=== PATIENT | male | born 1960 | race Asian ===

== ENCOUNTER → 2023-11-07 07:13 | Outpatient (REF) | payer OTHER, SELFPAY | LOC: PAVMRI 07:13 | PROVIDERS: ATTENDING PHYSICIAN Psychiatry & Neurology Neurology; FAMILY PHYSICIAN Nurse Practitioner Family | DX: I65.9 Occlusion and stenosis of unspecified precerebral artery (principal); R56.9 Unspecified convulsions | CPT/HCPCS: 70553; A9575 ==

== ENCOUNTER → 2024-02-16 07:48 | Outpatient (REF) | payer OTHER, SELFPAY ==
--- NOTE | 2024-02-16 11:03 | EEG.RPT ---
Electroencephalogram Report
Recording
Date of EE02/16/24
Type of EEG: Routine
Length of EEG recordin minutes
Done with Video Recording: No
Patient Status: Outpatient
Recording Conditions: Awake, Drowsy and Asleep
Hyperventilation Performed: No
Photic Stimulation Performed: Yes
Report
GREATER THAN 1 HOUR EEG REPORT
EEG INTERPRETATION:
Unremarkable EEG for age
CLINICAL CORRELATION:
A normal EEG does not rule out a diagnosis of epilepsy. If clinical suspicion for seizure persists, a prolonged recording may be warranted.
Clinical correlation is advised.
METHODS:
A 21 channel digitized electroencephalogram (EEG) was performed in the [facility]. The 10/20 international system of electrode placement was used with ECG and lateral/vertical eye movements recorded.
ELECTROENCEPHALOGRAPHER IMPRESSION(S):
Quality of study
Good
Background
Unremarkable, well maintained, medium amplitude alpha-frequency and unremarkable anterior-posterior voltage gradient
With eye opening the background activity changed to a low voltage mixture of frequencies.
Sleep
Drowsiness present
Hyperventilation
Did not activate the record
Photic Stimulation
Did not activate the record
ECG
Normal sinus rhythm
== END ==
LOC: EEG 07:48
PROVIDERS: ATTENDING PHYSICIAN Psychiatry & Neurology Neurology; FAMILY PHYSICIAN Nurse Practitioner Family
DX: R56.9 Unspecified convulsions (principal)
CPT/HCPCS: 95813

== ENCOUNTER 2025-05-17 11:35 | Emergency (ER) | payer MEDICARE, OTHER, SELFPAY ==
[2025-05-17] VITALS (8 sets, daily range): BP systolic 104–119; BP diastolic 60–73
--- NOTE | 2025-05-17 15:01 | ED.GENMED ---
History of Present Illness
General
Chief Complaint: Anal/Rectal Problem
Source: patient and family
Time Seen by Provider: 05/17/25 14:46
History of Present Illness
History of Present Illness:
64-year-old male presents to the emergency department accompanied by his daughter. He states that he was feeling his usual self until Monday when he started to feel 'pressure' in his rectum. He went to an urgent care/[facility] clinic during the week
and was diagnosed with a hemorrhoid, prescribed steroid cream, MiraLAX, Colace. He is also been taking Motrin rather regularly. Since that time, he notes increasing pain which prompted his visit here. He is having normal bowel movements at this
point without black stool or blood, without straining. He denies fever, chills, nausea, vomiting, abdominal pain, chest pain, shortness of breath. He is urinating normally. He describes discomfort at the perirectal area that is worse with certain
positions and movements. He denies bleeding.
Past History
Past History
ED Past Medical History: Other (Seizure disorder)
Social History
Tobacco: Non-smoker
Alcohol: Occasional
Drug: None
Living: with family
Phy Exam
Physical Exam
Physical Exam:
GENERAL: Alert , in no apparent distress
EYE: pupils equal and reactive
NECK: Supple, no significant adenopathy.
ENT: o/p clr, mmm.
CARDIAC: Regular rate and rhythm .
LUNGS: Clear breath sounds bilaterally, no acute respiratory distress, no wheezes/rales/rhonchi
ABDOMEN: Soft, without focal tenderness, no r/g, no cvat
NEUROLOGICAL: Alert and oriented, no focal neuro deficits
SKIN: Warm and dry, skin intact.
MUSCULOSKELETAL: No edema, well perfused.
PSYCH: Normal and appropriate interaction.
RECTAL: moderate sized ext hemorrhoid noted (not thrombosed in appearance), no bleeding. There is mild ttp, induration and erythema of st extending into buttock around hemorrhoid. No fluctuance/crepitus/drainage/streaking.
Course
Orders/Labs/Results
Orders:
Orders
05/17/25 15:00
CT Pelvis With Iv Contrast Urgent
Comment:
Reason For Exam: perirectal redness/ttp
Ketorolac [Toradol] 15 mg IV NOW STA
05/17/25 15:13
Basic Metabolic Panel Urgent
Complete Blood Count/No Diff Urgent
05/17/25 18:28
Propofol [Diprivan] 20 ml .ROUTE .STK-MED
05/17/25 18:31
Ampicillin/Sulbactam 3 G [Unasyn] 3 gm 0.9% Sodium Chloride 100 ml [Nss] 100 ml IV NOW
Abnormal Lab Results
05/17/25
15:13
WBC 11.1 H 10^3/uL
(4.8-10.8)
RBC 3.92 L 10^6/uL
(4.70-6.10)
Hgb 12.1 L g/dL
(13.0-18.0)
Hct 35.3 L %
(39.0-52.0)
MPV 10.7 H fL
(7.4-10.4)
Chloride 109 H mmol/L
(98-107)
05/17/25 15:13
05/17/25 15:13
Vital Signs
Initial and Last Documented VS:
Initial Vital Signs
Temp Pulse Resp BP Pulse Ox
98.1 F 54 16 106/69 99
05/17/25 11:40 05/17/25 11:40 05/17/25 11:40 05/17/25 11:40 05/17/25 11:40
Last Documented Vital Signs
Temp Pulse Resp BP Pulse Ox
98.0 F 72 20 104/72 99
05/17/25 19:15 05/17/25 19:15 05/17/25 19:15 05/17/25 19:15 05/17/25 19:15
Procedures
Moderate Sedation
ASA Risk Score: Class II
Chart and allergies reviewed: Yes
Consent for anesthesia obtained: Yes
Time out completed (validating right patient & procedure): Yes
Moderate Sedation Start Time(when first medication is given): 18:59
History of difficult intubation: No
Airway free of obstruction: Yes
Patient has a gag reflex: Yes
Patient is able to open mouth: Yes
Patient has no dentures: Yes
Patient has no loose teeth: Yes
Medication administered by Provider during Moderate Sedation: IV Propofol (mg)
Total dose administered: 100
Time drug administered: 18:00
Moderate Sedation Procedure End Time: 18:15
Incision/Drainage/Joint Aspiration
PERIANAL:
Anethesia: 1% Lidocaine with Epi
Preparation: cleaned with alcohol wipe
Type of procedure: incise
Nature of site: abscess
Description of abscess: less than 3cm
Loculations broken up: No
How much fluid was obtained?: small amount
Fluid description: purulent
Treatment: left open for drainage
Additional information:
iRRIGATED WITH NL SALINE
*Pulse Oximetry
SaO2: 99
Oxygen Mode of Delivery: Room air
Patient hypoxic: no
*Critical Care Note
Total Time (30-74mins, 75-104mins- exclusive of procedures): Not Applicable
Update Note
Update Note:
Patient presents to the Emergency Department with ____rectal pain
Number and Complexity of Problems Addressed at the Encounter
� Chronic conditions affecting care:
� Acute Exacerbation and/or Progression of Chronic Illness:
� Differential Diagnosis includes: But not limited to simple external hemorrhoid, thrombosed external hemorrhoid, perianal infection, perirectal abscess, etc. etc.
Amount and/or Complexity of Data to be Reviewed and Analyzed
� I performed an independent evaluation of and my interpretation is:
EKG:
CT:There is a 1.8 x 1.6 x 1.6 cm peripherally enhancing collection along the posterior aspect of the anal canal consistent with perianal abscess.
Xrays:
Laboratory Studies: Mild leukocytosis, mild anemia
Other:
� Review of other/old records reveals:
� Clinical information was obtained by an independent historian: Daughter who helps translate and provides further history
� Prescriptions/Medications Considered but not given:
� Further testing considered but not performed:
Risk of Complications and/or Morbidity or Mortality of Patient Management
� Social determinants of health affecting care:
� Discussion with other providers (PCP, Hospitalists, Consultants, etc):
� Escalation of care including admission/observation vs risk of discharge considered: 6:18 PM after explaining diagnosis to patient and daughter, daughter went behind the curtain for privacy and with George RN I reinspected area.
It appears that collection has spontaneously started to drain. Patient is very uncomfortable, and daughter states 'he has a very low pain threshold'. Decision made, weighing risks and benefits, to proceed with procedural sedation in order to
perform a proper I&D.
7:21 PM under procedural sedation, abscess was incised and irrigated. Patient tolerated procedure well. Will be given a dose of IV antibiotics before discharge with prescription for oral antibiotics and close follow-up. All discussed with patient
and daughter. Patient is awake alert talking with his daughter, etc.
ED Attending Note
-
Portions of this chart may have been created with voice recognition software.� Occasional wrong word or��sound alike� substitutions may have occurred due to the inherent limitations of voice recognition software.
Discharge Plan
Departure
Patient Disposition: Home (Routine Discharge)
Date of Disposition: 05/17/25
Time of Disposition: 19:25
Patient with high blood pressure during this ER visit?: No
Condition: Good
Discharge Problem:
Abscess, perianal
Instructions: Anal abscess and fistula, MODERATE SEDATION ADULT
Prescriptions:
New
amoxicillin-pot clavulanate 875-125 mg tablet
1 tab PO BID Qty: 10 0RF
Referrals:
Melo Lay MD [Active, [facility]] - Follow up in 2-3 days
Larisa Ceballos CRNP [Family Provider, Family Practice]
Activity Restrictions/Additional Instructions:
IF YOU DEVELOP FEVER, VOMITING, ABDOMINAL OR PELVIC PAIN, INCREASING NEW OR PERSISTENT RECTAL PAIN, BLEEDING, GET WORSE, DO NOT GET BETTER, OR OTHER WORRISOME SIGNS, PLEASE RETURN TO THE ER IMMEDIATELY!
Interventions
Interventions:
*Risk Screen - Suicide Last Done: 05/17/25 11:40
*General Assessment Last Done: 05/17/25 11:40
ED-Skin Assessment Last Done: 05/17/25 14:32
Discharge Date and Time
Print Language: Bing
[2025-05-17] MEDS: TORADOL 15 MG IV (15:13)
[2025-05-17 15:32] LABS: Hematocrit 35.3 % (39.0-52.0); Hemoglobin 12.1 g/dL (13.0-18.0); Mean Corp Hgb Conc. 34.3 g/dL (33.0-37.0); Mean Corpuscular Volume 90.1 fL (80.0-94.0); Platelet Count 201 10^3/uL (130-400); Red Cell Dist. Width 12.3 % (11.5-14.5)
[2025-05-17 15:50] LABS: Blood Urea Nitrogen 11 mg/dl (9-20); Calcium 9.3 mg/dl (8.4-10.2); Carbon Dioxide 24 mmol/L (22-30); Chloride 109 mmol/L (98-107); Glucose 95 mg/dl (70-99); Potassium 4.1 mmol/L (3.5-5.1); Sodium 138 mmol/L (135-145); eGFR > 60.00
[2025-05-17] MEDS: UNASYN IV (19:07)
--- NOTE | 2025-05-17 19:28 | ED.GENMED ---
History of Present Illness
General
Chief Complaint: Anal/Rectal Problem
Time Seen by Provider: 05/17/25 14:46
Past History
Past History
ED Past Medical History: Other (Seizure disorder)
Social History
Tobacco: Non-smoker
Alcohol: Occasional
Drug: None
Living: with family
Course
Orders/Labs/Results
Orders:
Orders
05/17/25 15:00
CT Pelvis With Iv Contrast Urgent
Comment:
Reason For Exam: perirectal redness/ttp
Ketorolac [Toradol] 15 mg IV NOW STA
05/17/25 15:13
Basic Metabolic Panel Urgent
Complete Blood Count/No Diff Urgent
05/17/25 18:28
Propofol [Diprivan] 20 ml .ROUTE .STK-MED
05/17/25 18:31
Ampicillin/Sulbactam 3 G [Unasyn] 3 gm 0.9% Sodium Chloride 100 ml [Nss] 100 ml IV NOW
Abnormal Lab Results
05/17/25
15:13
WBC 11.1 H 10^3/uL
(4.8-10.8)
RBC 3.92 L 10^6/uL
(4.70-6.10)
Hgb 12.1 L g/dL
(13.0-18.0)
Hct 35.3 L %
(39.0-52.0)
MPV 10.7 H fL
(7.4-10.4)
Chloride 109 H mmol/L
(98-107)
05/17/25 15:13
05/17/25 15:13
Vital Signs
Initial and Last Documented VS:
Initial Vital Signs
Temp Pulse Resp BP Pulse Ox
98.1 F 54 16 106/69 99
05/17/25 11:40 05/17/25 11:40 05/17/25 11:40 05/17/25 11:40 05/17/25 11:40
Last Documented Vital Signs
Temp Pulse Resp BP Pulse Ox
98.0 F 72 20 110/68 99
05/17/25 19:25 05/17/25 19:25 05/17/25 19:25 05/17/25 19:25 05/17/25 19:25
Procedures
Moderate Sedation
Moderate Sedation Start Time(when first medication is given): 18:59
Moderate Sedation Procedure End Time: 18:15
*Pulse Oximetry
SaO2: 99
Oxygen Mode of Delivery: Room air
ED Attending Note
-
Portions of this chart may have been created with voice recognition software.� Occasional wrong word or��sound alike� substitutions may have occurred due to the inherent limitations of voice recognition software.
Discharge Plan
Departure
Patient Disposition: Home (Routine Discharge)
Date of Disposition: 05/17/25
Time of Disposition: :25
Patient with high blood pressure during this ER visit?: No
Condition: Good
Discharge Problem:
Abscess, perianal
Instructions: Anal abscess and fistula, MODERATE SEDATION ADULT
Prescriptions:
New
amoxicillin-pot clavulanate 875-125 mg tablet
1 tab PO BID Qty: 10 0RF
Referrals:
Melo Lay MD [Active, [facility]] - Follow up in 2-3 days
Larisa Ceballos CRNP [Family Provider, Family Practice]
Activity Restrictions/Additional Instructions:
IF YOU DEVELOP FEVER, VOMITING, ABDOMINAL OR PELVIC PAIN, INCREASING NEW OR PERSISTENT RECTAL PAIN, BLEEDING, GET WORSE, DO NOT GET BETTER, OR OTHER WORRISOME SIGNS, PLEASE RETURN TO THE ER IMMEDIATELY!
Interventions
Interventions:
*Risk Screen - Suicide Last Done: 05/17/25 11:40
*General Assessment Last Done: 05/17/25 11:40
ED-Skin Assessment Last Done: 05/17/25 14:32
Discharge Date and Time
Print Language: Bing
== END 2025-05-17 19:30 | disposition home or self-care (01) ==
LOC: EMR 11:35
PROVIDERS: EMERGENCY PHYSICIAN Emergency Medicine; FAMILY PHYSICIAN Nurse Practitioner Family
DX: L02.91 Cutaneous abscess, unspecified (principal); K64.9 Unspecified hemorrhoids; G40.909 Epilepsy, unspecified, not intractable, without status epilepticus
CPT/HCPCS: 99284; 10060; 96365; 96375; 72193; 80048; 85027; Q9967

== ENCOUNTER 2025-05-23 12:09 | Day surgery (SDC) | payer MEDICARE, OTHER, SELFPAY ==
[2025-05-23] VITALS (7 sets, daily range): BP systolic 97–131; BP diastolic 60–82; BMI 24.1
[2025-05-23] MEDS: TYLENOL 1000 MG PO (12:48)
[2025-05-23] MEDS: NORMOSOL-R/PLASMALYTE-A 1000 IV (12:53)
== END 2025-05-23 18:30 | disposition home or self-care (01) ==
LOC: SDS 12:09
PROVIDERS: ATTENDING PHYSICIAN Surgery
DX: K61.2 Anorectal abscess (principal)
CPT/HCPCS: 46040; 93005; J1335

== ENCOUNTER 2025-09-16 06:22 | Day surgery (SDC) | payer MEDICARE, SELFPAY | END 2025-09-16 09:42 | disposition home or self-care (01) | LOC: GI 06:22 | PROVIDERS: ATTENDING PHYSICIAN Surgery | DX: Z12.11 Encounter for screening for malignant neoplasm of colon (principal) | CPT/HCPCS: G0121 ==